=== PATIENT | female | born 1985 | race African-American/Black ===

== ENCOUNTER 2020-03-15 22:29 | Inpatient (IN) | payer OTHER, SELFPAY ==
[2020-03-15] MEDS ORDERED: Ondansetron ODT 4 MG TAB PO PRN (23:44)
[2020-03-15] MEDS ORDERED: Ondansetron PF 4 MG/2 ML Vial IVP PRN (23:44)
[2020-03-16 00:15] VITALS: BMI 35.1
--- NOTE | 2020-03-16 00:18 | CON ---
DATE OF CONSULTATION: 03/15/2020 REASON FOR CONSULTATION: Abdominal pain. HISTORY OF PRESENT ILLNESS: Ms. Ascencio is a 34-year-old female, whom I saw tonjasmin at [facility] ER prior to her transfer to the [facility]. Reportedly, she has been in her usual state of health until this afternoon when she developed sudden onset of back pain that radiates with a fine wrapping around the right side. She did have nausea, but without any vomiting. The pain was fairly intense, rated at 10/10 when she presented to the ER. Since then, the pain has been under control with pain medication. She denies having had any previous abdominal pain. There is no antecedent gastrointestinal history. She does have chronic anemia for years with hemoglobin in the 6+ range reportedly. There is no signs of bleeding such as melena, hematochezia, or rectal bleeding. PAST MEDICAL HISTORY: No medical illness. PAST SURGICAL HISTORY: x2. ALLERGIES: NONE. MEDICATIONS: At home, none. SOCIAL HISTORY: The patient is single, has two children. No tobacco and no alcohol consumption. FAMILY HISTORY: Negative for any known GI problem, liver disease, or GI malignancy. REVIEW OF SYSTEMS: Ten-point review of system was completely negative. PHYSICAL EXAMINATION: VITAL SIGNS: At [facility] ER, her temperature was 98.2, blood pressure 146/102, pulse of 97. GENERAL: She is alert and uncomfortable, but in no severe pain. HEENT: Shows anicteric sclerae. Oropharynx is clear and moist. CV: Shows normal S1 and S2. Regular rate and rhythm. CHEST: Shows a breath sound. ABDOMEN: Mildly protuberant, but soft, essentially nontender to palpation. No palpable mass or organomegaly. She has active bowel sounds. EXTREMITIES: Shows no edema. DIAGNOSTIC STUDIES: Abdominal ultrasound performed showed normal liver. Common bile duct measure 1.02 cm. Gallbladder distended without any gallstone. Pancreas with edematous change involving the head. LABORATORY DATA: WBCs 13.9, hemoglobin 6.2, and platelet count of 455. Electrolytes within normal range. Creatinine 0.70, bilirubin 0.8, AST of 201, ALT of 118, alkaline phosphatase 150, and lipase of 8823. ASSESSMENT: 1. Severe abdominal pain with laboratory showing elevation of liver enzymes, but normal bilirubin and lipase of over 8800s. Biliary pancreatitis is suspected, although cholelithiasis is not seen on her ultrasound; however, bile duct is elevated to 1 cm, raising choledocholithiasis is also a possibility. 2. Pancreatitis, likely biliary as the patient does not consume alcohol and is not on any medication. RECOMMENDATION: 1. IV fluid for aggressive hydration. 2. Pancreatic rest with complete n.p.o. for now. 3. We will repeat LFT tomorrow. If her liver enzymes are still elevated or if there is an increase in her bilirubin, then we will proceed with ERCP. However, if there is rather fast normalization of her liver profile and lipase, then we will obtain surgical evaluation for cholecystectomy with intraoperative cholangiogram. 4. We will check a serum triglyceride in a.m. 5. We will follow. Job ID: [id number]
[2020-03-16] MEDS: Lactated Ringer's 1,000 ML IV SCH ×3 (00:33→15:24)
--- NOTE | 2020-03-16 00:54 | PDOC.FPRHP ---
- History of Present Illness Chief Complaint: Abdominal pain History of Present Illness: Patient is a 34 year old female with a history of anemia who presents to the ED in [facility] with complaints of epigastric abdominal pain and chest pain since eating shrimp for lunch. The patient describes the pain as "just pain" rated max 10/10, current 5/10, no radiation. She says the pain worsens with big breaths and when laying flat. She describes the chest pain as tightness and says it resolved prior to arrival. She reports low back pain, nausea, and vomiting x 6 since onset of pain. No hx of similar symptoms in the past. ED Course: In the [place] ED, the patient received Morphine 8mg, Ketorolac 30mg, Zofran 4mg and Zosyn 3.375mg. Dr. Hood, GI, was consulted and recommended admission for possible ERCP in the am. Patient was transferred to [facility] due to lack of beds at the facility. - Allergies/Adverse Reactions Allergies Allergy/AdvReac Type Severity Reaction Status Date / Time No Known Drug Allergies Allergy Verified 03/16/20 00:20 - History PMHx: Anemia (reports hx of blood transfusions, baseline Hgb ~7, stopped iron due to constipation) PSHx: x 2 FHx: Non-contributory Social: Denies tobacco use, ETOH use and drug use. - Review of Systems General: denies: fever/chills, night sweats, fatigue Eyes: denies: eye pain, vision changes ENT: denies: nasal congestion, rhinorrhea Respiratory: denies: cough, shortness of breath Cardiovascular: denies: chest pain, palpitation, edema Gastrointestinal: reports: nausea, vomiting, abdominal pain. denies: diarrhea, constipation, GI bleeding Genitourinary: reports: other (denies vaginal itching, discharge and odor). denies: dysuria, polyuria Skin: denies: rashes, jaundice Musculoskeletal: denies: pain, stiffness Neurological: denies: numbness, weakness Psychological: denies: anxiety, depression - Vital signs BP: [158/105] HR: [78] RR: [16] Tmax: [98.0F] Pox: [99]% on [RA] Wt: [111kg] - Physical Exam Constitutional: NAD, awake, alert and oriented HEENT: normocephalic and atraumatic, conjunctiva clear, MMM Neck: FROM, trachea midline Chest: no-tender to palpation, no lesions Heart: RRR, normal S1/S2, no murmurs/rubs/gallops, no edema Lungs: CTAB, no respiratory distress, good air movement Abdomen: soft, bowel sounds present, no masses/distention -Abdomen: Epigastric tenderness Musculoskeletal: normal structure, ROM grossly normal Neurological: no focal deficit, normal sensation Skin: no rash/lesions, no jaundice Heme/Lymphatic: no unusual bruising or bleeding Psychiatric: normal mood and affect FMR H&P: A/P - Problem List (1) Anemia Current Visit: Yes Status: Chronic Code(s): D64.9 - ANEMIA, UNSPECIFIED (2) Pancreatitis Current Visit: Yes Status: Acute Code(s): K85.90 - ACUTE PANCREATITIS WITHOUT NECROSIS OR INFECTION, UNSP - Plan Gallstone Pancreatitis WBC 13.9. Lipase 8823. LFTs elevated. RUQ US showed CBD dilation 1.02cm, dilated GB, edematous changes of the pancreatic head. Dr. Hood, GI, consulted in ED. Received Ketorolac, Zosyn, Morphine, Zofran in the ED. -Complete NPO -Dr. Hood recs: repeat LFTs in am, if trend up will proceed with ERCP, if improve consider surgical eval -CBC, CMP, Lipid panel in am Microcytic anemia Hgb 6.2, MCV 60.7 -Cause unknown, chronic per patient, previously on iron supplementation -1 unit pRBC -Iron studies in the am Hypokalemia K 3.3 at CS -Monitor with am CMP -Supplement as needed Trichomoniasis Asymptomatic. UA + blood, nitrites, RBC, WBC, squamous epithelium and trichomonas. -Hx of trichomoniasis in the past -F/u urine culture -Start flagyl x 7 days for treatment prior to discharge PCP: None, City Call Code: No CPR DVT PPx: not indicated, Brendan score 2 Dispo: Admit to medicine inpatient FMR H&P: [facility] - Plan Date/Time: 03/16/20 Randell4 Tabby Reynoso, have evaluated this patient and agree with findings/plan as outlined by jewelry internship resident. Pertinent changes/additions are listed here. 34 yo F is transferred from [facility] for gallstone pancreatitis. She reports a 1 day history of back pain, R sided pain. Reports nausea, no vomiting. Given zosyn, ketoralax 30, morphine 8, 1L, zofran in ED with some improvement of pain. Dr. Hood saw her in ED. RUQ US: CBD dilated to 1.02cm, pancreatic head edematous, gallbladder distended, no cholelithiasis PE: Gen: NAD HEENT: Moist MM, no LAD Heart: RRR, no murmurs or extra sounds. Distal pulses 2+ Lungs: CTAB, no wheezing. No increased work of breathing Abd: soft, epigastric, RUQ TTP, BS+ Ext: no cyanosis or edema Skin: no rashes Psych: AOx3 Gallstone Pancreatitis, concern for choledocholithiasis - Lipase 8823, AST 201, ALT 118 with CBD dilation and WBC 13.9. No cholecystitis on imaging. - Dr. Hood consulted from ED, appreciate recommendations - Continue IVF, monitor strict I/Os - Given zosyn in ED, GI did not recommend continuation at this time. However, if white count uptrends, patient becomes febrile etc will need to restart for presumed acute cholangitis - NPO strict - Trend labs in am for further procedural plan Microcytic Anemia - Hgb 6.2 - Chronic per patient, previously recommended iron supplements. Will check iron studies. Considering MCV of 60 could also consider thalassemia workup, however could be done outpatient - Transfuse 1 unit prbc tonight Trichomonas - Seen on UA - Asymptomatic, recommend starting treatment with metronidazole x7days prior to discharge - UA with +nitrites, but negative LE, and had squamous cells as well. Ordered urine culture to be added to labs in PCP: none, city call Attending: Dispo: admit to medical floor, inpatient
[2020-03-16] MEDS: Acetaminophen 325 MG TAB PO PRN ×2 (04:46→15:24)
[2020-03-16 05:54] LABS: ALT (SGPT) 90 U/L (8-55); AST (SGOT) 75 U/L (5-34); Albumin 3.3 g/dL (3.5-5.0); Alkaline Phosphatase 132 U/L (40-110); Anion Gap 10 mmol/L (10-20); BUN (Urea Nitrogen) 6 mg/dL (7.0-18.7); Bilirubin, Total 0.8 mg/dL (0.2-1.2); Calc. Creatinine Clearance 217 mL/min (70-130); Calcium 8.5 mg/dL (7.8-10.44); Carbon Dioxide 24 mmol/L (22-29); Chloride 106 mmol/L (98-107); Cholesterol 102 mg/dl (< 200 Desired); Estimated GFR-MDRD Greater than 90; Globulin 3.4 g/dL (2.4-3.5); Glucose 97 mg/dL (70-105); HDL Cholesterol 52 mg/dL (>60 Neg Risk); LDL Cholesterol, Calculated 42 mg/dL; Potassium 3.4 mmol/L (3.5-5.1); Protein, Total 6.7 g/dL (6.0-8.3); Sodium 137 mmol/L (136-145); Triglycerides 41 mg/dL (Less than 150)
[2020-03-16 05:59] LABS: #Lymphocytes 1.5 thou/uL (1.20-3.40); #Monocytes 0.7 thou/uL (0.11-0.59); #Neutrophils 5.5 thou/uL (1.40-6.50); %Eosinophils 0.2 % (0.0-10.0); %Lymphocytes 19.1 % (21.0-51.0); %Monocytes 9.6 % (0.0-10.0); %Neutrophils 71.1 % (42.0-75.0); Hemoglobin 6.5 g/dL (12.0-16.0); Hypochromia MODERATE=16-30 cells (100X) (0-5/hpf); MDiff Complete? YES; Mean Corpuscular HGB CONC 28.2 g/dL (32.0-36.0); Mean Corpuscular Hemoglobin 16.8 pg (27.0-31.0); Mean Corpuscular Volume 59.4 fL (78.0-98.0); Microcytosis MODERATE=15-30 cells (100X) (0-5/hpf); Ovalocytes SLIGHT = 2-5 cells (100X) (0-1/hpf); Platelet Count 331 thou/uL (130-400); Platelet Morphology Comment Appears Adequate; RBC Distribution Width 21.5 % (11.5-14.5); Red Blood Cell (RBC) Count 3.86 mill/uL (4.20-5.40); Reflex for Review?? NO; Target Cells SLIGHT = 2-5 cells (100X) (0-1/hpf); White Blood Cell (WBC) Count 7.7 thou/uL (4.8-10.8)
[2020-03-16 07:16] LABS: Troponin I 0.021 ng/mL (< 0.028)
[2020-03-16] MEDS ORDERED: FLU VACC QS2020-21(6MOS UP)/PF 60 MCG/0.5 ML SYRINGE IM ONE (09:00)
--- NOTE | 2020-03-16 10:36 | PRG ---
DATE OF SERVICE: 03/16/2020 SUBJECTIVE: Ms. Ascencio still has ongoing epigastric abdominal pain, but it is better than it was last night mildly. She has no further nausea or vomiting today. Last bowel movement was this morning. OBJECTIVE: VITAL SIGNS: Temperature 98.5, pulse 78, and blood pressure 136/94. GENERAL: She is in no acute distress. Alert and oriented x3. HEENT: Oropharynx is clear without lesions. LUNGS: Clear to auscultation bilaterally. HEART: Regular rate and rhythm without murmur. ABDOMEN: Soft, tender in the epigastric region to light palpation. Bowel sounds are present. EXTREMITIES: No lower extremity edema. LABORATORY DATA: White blood cell count 7.7, hemoglobin 6.5, platelets 331, and MCV 59.4. Lipase is improved from 8000 down to 1200; bilirubin 0.8; AST 75, down from 201; ALT is 90, down from 118; alkaline phosphatase is 132, down from 150. IMPRESSION: 1. Gallstone pancreatitis. Alcohol history is negative. Triglycerides are normal. Sudden onset pain and rapid rise and fall of her lipase all are consistent with the gallstone, most likely now passed with normal bilirubin and dropping LFTs. ALT greater than 3 times normal for 34-year-old woman on presentation. This again is consistent with gallstone pancreatitis. 2. Microcytic anemia. She has had this anemia for years. She does have heavy menstrual periods. She could have hemoglobin disorder. I am not sure if this has been worked up in the past. RECOMMENDATIONS: 1. Consult General Surgery for cholecystectomy with intraoperative cholangiogram. 2. If the intraoperative cholangiogram is positive, we will follow with endoscopic retrograde cholangiopancreatography. 3. Check iron studies. Evaluation of iron deficiency anemia could be worked up further potentially as an outpatient. This is a chronic condition. However, she is requiring blood transfusion today. Job ID: [id number]
[2020-03-16 11:23] LABS: Iron 24 ug/dL (50-170); Iron Binding Capacity, Total 399 mcg/dL (265-497)
[2020-03-16 15:20] LABS: Hemoglobin 7.6 g/dL (12.0-16.0); Mean Corpuscular HGB CONC 28.7 g/dL (32.0-36.0); Mean Corpuscular Volume 62.5 fL (78.0-98.0); Mean Platelet Volume 5.4 fL (7.4-10.4); Platelet Count 350 thou/uL (130-400); Red Blood Cell (RBC) Count 4.22 mill/uL (4.20-5.40); White Blood Cell (WBC) Count 11.8 thou/uL (4.8-10.8)
[2020-03-16] MEDS ORDERED: Ketorolac Tromethamine 30 MG/ML VIAL IVP PRN (16:42)
[2020-03-16] MEDS ORDERED: Acetaminophen 500 MG TAB PO PRN (16:42)
[2020-03-16] MEDS ORDERED: traMADol HCl 50 MG TAB PO PRN ×2 (16:42)
[2020-03-16 17:01] LABS: Iron 62 ug/dL (50-170); Iron Binding Capacity, Total 391 mcg/dL (265-497); Transferrin, Serum 313 mg/dL (180-382)
[2020-03-16] MEDS ORDERED: Ketorolac Tromethamine 30 MG/ML VIAL IVP SCH (17:15)
--- NOTE | 2020-03-17 00:12 | CON ---
DATE OF CONSULTATION: SUBJECTIVE: Gillian Ascencio is a 34-year-old black female, 5 feet 10 inches, 244 pounds. The patient presented with onset of abdominal pain, found to have pancreatitis, admitted 03/16/2020, admitted by Family Practice, Dr. Jarvis Govea is seeing the patient. The patient's lipase has improved since admission. Her pain is improved, although not resolved. Bilirubin is normal. AST and ALT slightly elevated. Slightly elevated lipase, decreased from over She has chronic anemia, probably from menorrhagia. Hemoglobin 6.5 on admission, 7.6 today. White count 11.8. Ultrasound of abdomen obtained revealed dilated bile duct of 1 mm. No gallstones. It is felt that since the patient does not drink alcohol, most likely etiology is a passed gallstone. Plan is for laparoscopic video cholecystectomy cholangiogram. She understands risks and benefits and consents. ALLERGIES: NONE. SOCIAL HISTORY: Tobacco, none. Alcohol, none. MEDICATIONS: None routinely. PAST SURGICAL HISTORY AND MEDICAL HISTORY: Noncontributory. FAMILY HISTORY: Noncontributory. PHYSICAL EXAMINATION: VITAL SIGNS: Height 5 feet 10 inches, weight 244 pounds. Temperature 97.7, heart rate 89, blood pressure 132/84. HEAD, EARS, EYES, NOSE, AND THROAT: Unremarkable. Sclerae nonicteric. SKIN: Nonjaundiced. LUNGS: Clear to auscultation. CARDIAC: Regular rate and rhythm without murmur or gallop. ABDOMEN: Soft. Mild tenderness. EXTREMITIES: Unremarkable. ASSESSMENT AND PLAN: Biliary pancreatitis. We recommend laparoscopic video cholecystectomy. Risks and benefits of the operation discussed, questions answered. Job ID: [id number]
[2020-03-17 05:41] LABS: #Lymphocytes 1.8 thou/uL (1.20-3.40); #Monocytes 1.4 thou/uL (0.11-0.59); #Neutrophils 10.8 thou/uL (1.40-6.50); %Basophils 0.3 % (0.0-1.0); %Eosinophils 0.2 % (0.0-10.0); %Lymphocytes 12.5 % (21.0-51.0); %Neutrophils 76.9 % (42.0-75.0); Hemoglobin 7.5 g/dL (12.0-16.0); Mean Corpuscular HGB CONC 28.7 g/dL (32.0-36.0); Mean Corpuscular Volume 62.7 fL (78.0-98.0); Mean Platelet Volume 5.3 fL (7.4-10.4); Platelet Count 349 thou/uL (130-400); RBC Distribution Width 25.4 % (11.5-14.5); Red Blood Cell (RBC) Count 4.17 mill/uL (4.20-5.40); White Blood Cell (WBC) Count 14.1 thou/uL (4.8-10.8)
[2020-03-17 05:50] LABS: ALT (SGPT) 60 U/L (8-55); AST (SGOT) 31 U/L (5-34); Albumin 3.4 g/dL (3.5-5.0); Alkaline Phosphatase 120 U/L (40-110); Anion Gap 14 mmol/L (10-20); BUN (Urea Nitrogen) 5 mg/dL (7.0-18.7); Bilirubin, Total 1.4 mg/dL (0.2-1.2); Calc. Creatinine Clearance 201 mL/min (70-130); Carbon Dioxide 22 mmol/L (22-29); Chloride 104 mmol/L (98-107); Estimated GFR-MDRD Greater than 90; Globulin 3.8 g/dL (2.4-3.5); Glucose 92 mg/dL (70-105); Potassium 3.6 mmol/L (3.5-5.1); Protein, Total 7.2 g/dL (6.0-8.3); Sodium 136 mmol/L (136-145)
[2020-03-17] MEDS: Lactated Ringer's 1,000 ML IV SCH ×4 (06:16→17:25)
--- NOTE | 2020-03-17 06:34 | PDOC.FM ---
- Subjective Subjective: Masood(ravin Ascencio is doing about the same as yesterday. She is still complaining of abdominal pain which she states is decreased by the pain medication but when that wears off it has not improved. Her labs have continued to improve. She is extremely tender to palpation and has rebound tenderness on exam. She was allowed a clear liquid diet last night and was able to tolerate some jell-o and pudding. She is scheduled to go to surgery today with Dr. Wood. - Objective Vital Signs & Weight: Vital Signs (12 hours) Temp Pulse Resp BP Pulse Ox 03/17/20 04:52 98.0 F 91 18 142/87 H 97 03/16/20 23:37 98.2 F 99 18 134/89 99 03/16/20 20:40 98.4 F 89 18 126/86 99 03/16/20 20:20 99 Weight Weight 111 kg I&O: 03/15/20 03/16/20 03/17/20 06:59 06:59 06:59 Intake Total 900 3920 Balance 900 3920 Result Diagrams: 03/17/20 05:14 03/17/20 05:14 Phys Exam - Physical Examination Constitutional: NAD Laying comfortably in bed, alert and aware Neck: supple, full ROM Respiratory: no wheezing, no rales, clear to auscultation bilateral Abdominal pain with deep inspiration Cardiovascular: RRR, no significant murmur Gastrointestinal: soft, positive bowel sounds Extremely tender to palpation and rebound tenderness in upper abdomen Some distention present Neurological: non-focal, moves all 4 limbs Psychiatric: normal affect, A&O x 3 Skin: no rash Dx/Plan - Plan Plan: Gallstone Pancreatitis - Dr. Wood following, laparoscopic video cholecystectomy scheduled for today - Rebound tenderness today on exam - Complete NPO - LFTs have continued to improve Microcytic anemia - Chronic, Hb stable since transfusion - Iron studies confirm iron deficiency anemia - Per pt hx, likely 2/2 menorrhagia. Providing clinic card for f/u and trial of control - Continue to monitor and transfuse, if indicated Hypokalemia - Monitor with morning CMPs - Replete once no longer NPO Trichomoniasis - F/u urine culture - Start flagyl x 7 days for treatment once no longer NPO, prior to discharge PCP: None, City Call Code: Full DVT PPx: not indicated, Brendan score 2 IVF: LR 150mL/h Dispo: Admit to medicine inpatient, LOS and discharge will be based on general surgery recs.
[2020-03-17] MEDS ORDERED: Glycopyrrolate 0.2 MG/ML 5 ML SYRINGE ONE (10:10)
[2020-03-17] MEDS ORDERED: Dexamethasone 20 MG/5 ML VIAL ONE (10:10)
[2020-03-17] MEDS ORDERED: PROPOFOL 200 MG/20 ML VIAL ONE (10:10)
[2020-03-17] MEDS ORDERED: Rocuronium Bromide 10 MG/ML (10ML VIAL) ONE (10:10)
[2020-03-17] MEDS ORDERED: Ondansetron PF 4 MG/2 ML Vial ONE ×2 (10:10→15:18)
[2020-03-17] MEDS ORDERED: Lidocaine 1% PF 5 ML VIAL ONE (10:10)
[2020-03-17 11:01] LABS: SARS-CoV-2 MS2 Positive; SARS-CoV-2 N Gene Negative; SARS-CoV-2 S Gene Negative; SARS-CoV-2 by NAA Not Detected (NotDetected); SARS-CoV-2 orf1ab Negative
[2020-03-17] MEDS ORDERED: Levofloxacin 500 mg/D5W 100 ml Premix Bag ONE (12:51)
[2020-03-17] MEDS ORDERED: Bupivacaine HCl 0.5%/Epinephrine 1:200,000/PF 30 ml Vial ONE (13:26)
[2020-03-17] MEDS ORDERED: Iothalamate Meglumine 60% 50 ML VIAL FS ONE (13:26)
[2020-03-17] MEDS ORDERED: Fentanyl 100 MCG/2 ML VIAL ONE (13:47)
--- NOTE | 2020-03-17 16:15 | PRG ---
DATE OF SERVICE: Gillian Ascencio underwent laparoscopic cholecystectomy, cholangiograms today. Her gallbladder was edematous and inflamed. There was ascites from her pancreatitis. She is still having pain from her pancreatitis and that is improving today relative to yesterday. The patient should be observed overnight postoperatively today and probably could be discharged home over the weekend. Diet and activity as tolerated. No lifting restriction. Encourage ambulation. She should follow up in my office in 2 to 3 weeks. If her pain worsens, she should obtain a CAT scan. The patient should be able to be discharged home on Tylenol, ibuprofen, and Ultram for pain. I will see her as needed this hospitalization. Dr. Javier Demarco is covering, call him as necessary. The patient can be discharged home in a day or two pending her diet tolerance and activity. Job ID: [id number]
--- NOTE | 2020-03-17 16:51 | RAD ---
EXAM: Cholangiogram in surgery HISTORY: Common bile duct enlargement COMPARISON: Ultrasound 03/15/2020 FINDINGS: Limited intraoperative fluoroscopic views were taken during a cholangiogram in surgery. The common bile duct is normal in caliber without filling defect. No leakage from the common bile duct. Contrast passes into the duodenum. No abnormality of the intrahepatic bile ducts. IMPRESSION: Unremarkable cholangiogram
[2020-03-17] MEDS: Enoxaparin Sodium 40 MG/0.4 ML SYRINGE SC SCH (19:49)
--- NOTE | 2020-03-17 21:06 | OP ---
DATE OF PROCEDURE: 03/17/2020 PREOPERATIVE DIAGNOSES: Cholecystitis, suspect cholelithiasis, passed stone, pancreatitis. POSTOPERATIVE DIAGNOSES: Cholecystitis, suspect cholelithiasis, passed stone, pancreatitis, dilated bile duct. PROCEDURE PERFORMED: Laparoscopic video cholecystectomy, negative intraoperative cholangiograms except for dilated duct, prompt emptying into the duodenum without filling defects. ANESTHESIA: General, local 0.5% Marcaine with epinephrine 30 mL. DESCRIPTION OF PROCEDURE: The patient was taken to the operating room, where under general anesthesia, abdomen was prepared with ChloraPrep and draped in routine fashion. Local anesthetic infiltrated in skin and subcutaneous tissue about each port site. Infraumbilical incision made. Pneumoperitoneum to 15 mmHg was obtained with a Veress needle, replaced with a 5 port, video laparoscope inserted. Right subxiphoid incision made and 11 port placed, right subcostal incision made in midclavicular and anterior axillary line and 5 ports placed. Liver appeared to be normal. There was ascites fluid consistent with pancreatitis, perihepatic. Gallbladder appeared to be edematous, inflamed. Fundus grasped and retracted cephalad. Infundibulum grasped, dissected free. Critical view obtained. Cautery used for hemostasis. Cystic artery doubly clipped proximally. Cystic duct singly clipped on the gallbladder side, opening made in the cystic duct, cholangiocatheter inserted and cholangiogram was obtained using fluoroscopy. Anesthesia administered intravenous glucagon. Contrast flowed properly into the duodenum without filling defects in the dilated common hepatic, common bile, and intrahepatic ducts. Cholangiocatheter removed. Cystic duct stump doubly clipped, and cystic artery and duct divided, gallbladder dissected free from liver bed, obtaining good hemostasis prior to division of final peritoneal attachments. Gallbladder and contents removed, submitted to Pathology. Good hemostasis ensured with cautery. Irrigant and pneumoperitoneum evacuated. All instruments removed and all skin incisions were approximated with interrupted subdermal 4-0 Monocryl, and Torrey glue applied. Job ID: [id number]
[2020-03-18] MEDS ORDERED: Iron Sucrose Complex 200 MG in Sodium Chloride 0.9% 100 ML IVPB SCH (01:30)
[2020-03-18] MEDS ORDERED: Iron, Sodium Ferric Gluconate 250 MG in Sodium Chloride 0.9% 100 ML IVPB SCH (02:00)
[2020-03-18] MEDS: Lactated Ringer's 1,000 ML IV SCH ×2 (04:50→10:26)
[2020-03-18 06:06] LABS: #Lymphocytes 1.1 thou/uL (1.20-3.40); #Neutrophils 16.9 thou/uL (1.40-6.50); %Lymphocytes 5.8 % (21.0-51.0); %Monocytes 5.4 % (0.0-10.0); %Neutrophils 88.8 % (42.0-75.0); Anisocytosis MODERATE=16-30 cells (100X) (0-5/hpf); Hemoglobin 6.9 g/dL (12.0-16.0); Hypochromia MODERATE=16-30 cells (100X) (0-5/hpf); MDiff Complete? YES; Mean Corpuscular HGB CONC 27.9 g/dL (32.0-36.0); Mean Corpuscular Hemoglobin 17.7 pg (27.0-31.0); Mean Corpuscular Volume 63.4 fL (78.0-98.0); Mean Platelet Volume 5.6 fL (7.4-10.4); Microcytosis MODERATE=15-30 cells (100X) (0-5/hpf); Platelet Count 285 thou/uL (130-400); RBC Distribution Width 25.6 % (11.5-14.5); Red Blood Cell (RBC) Count 3.87 mill/uL (4.20-5.40)
[2020-03-18 06:09] LABS: ALT (SGPT) 42 U/L (8-55); AST (SGOT) 31 U/L (5-34); Albumin 3.2 g/dL (3.5-5.0); Alkaline Phosphatase 108 U/L (40-110); Anion Gap 13 mmol/L (10-20); BUN (Urea Nitrogen) 6 mg/dL (7.0-18.7); Bilirubin, Total 0.7 mg/dL (0.2-1.2); Calc. Creatinine Clearance 217 mL/min (70-130); Calcium 8.8 mg/dL (7.8-10.44); Carbon Dioxide 23 mmol/L (22-29); Chloride 104 mmol/L (98-107); Estimated GFR-MDRD Greater than 90; Globulin 3.7 g/dL (2.4-3.5); Glucose 101 mg/dL (70-105); Lipase 80 U/L (8-78); Potassium 3.7 mmol/L (3.5-5.1); Protein, Total 6.9 g/dL (6.0-8.3); Sodium 136 mmol/L (136-145)
--- NOTE | 2020-03-18 06:11 | PDOC.FM ---
- Subjective Subjective: Masood(ravin Ascencio is doing well this morning and denies pain currently. She says she is feeling much better, overall. She states she was able to tolerate her liquid diet last night and is eager to try solid foods. She is agreeable to starting OCPs in the outpt setting, upon discharge. Incisions have no erythema/edema/discharge and are closed. - Objective Vital Signs & Weight: Vital Signs (12 hours) Temp Pulse Resp BP Pulse Ox 03/18/20 04:31 98.3 F 76 18 130/87 98 03/18/20 00:00 97.7 F 78 18 126/86 98 03/17/20 20:00 98 03/17/20 19:50 97.9 F 81 18 139/88 98 Weight Weight 111 kg I&O: 03/16/20 03/17/20 03/18/20 06:59 06:59 06:59 Intake Total 900 3920 1900 Balance 900 3920 1900 Result Diagrams: 03/18/20 05:09 03/18/20 05:09 Phys Exam - Physical Examination Constitutional: NAD (Laying comfortably in bed, awake, alert) Neck: supple, full ROM Respiratory: no wheezing, no rales, clear to auscultation bilateral Cardiovascular: RRR, no significant murmur Gastrointestinal: soft, no distention, positive bowel sounds Lap scars on abdomen closed, no erythema/edema/discharge Musculoskeletal: no edema, pulses present Neurological: non-focal, moves all 4 limbs Psychiatric: normal affect, A&O x 3 Skin: no rash Dx/Plan - Plan Plan: Gallstone Pancreatitis - Cholecystectomy and cholangiogram with Dr. Wood yesterday. - Regular diet - Can be discharged once tolerating diet and pain Microcytic anemia - Chronic, Hb stable since transfusion - Iron studies confirm iron deficiency anemia - Per pt hx, likely 2/2 menorrhagia. Providing clinic card for f/u and trial of control Will d/c with OCPs - Continue to monitor and transfuse, if indicated Hb today 6.9, likely hemodilution Orthostatic vitals ordered Likely transfusion of 1u pRBCs today - Outpt Fe supplementation recommended Trichomoniasis - F/u urine culture - Start flagyl x 7 days Hypokalemia, resolved PCP: None, City Call Code: Full DVT PPx: not indicated, Brendan score 2 IVF: LR 150mL/h Dispo: Admit to medicine inpatient, LOS and discharge likely <24h
[2020-03-18] MEDS ORDERED: metroNIDAZOLE 500 MG TAB PO SCH (09:45)
--- NOTE | 2020-03-18 11:34 | PDOC.BPN ---
- Brief Progress Note Encounter Date: 03/18/20 Encounter Time: 11:32 Patient is postoperative day 1 from a laparoscopic cholecystectomy with intraoperative cholangiogram Patient states that she is doing very well this morning. She is not having any difficulty with her clear liquids. Her original pain is gone. She is ambulating around the room. She desires additional food. Patient has been afebrile with heart rates in the 80s General-smiling and happy Lungs-grossly clear to auscultation bilaterally Heart-regular regular Abdomen-soft, appropriately tender around incisions, incisions are clean dry and intact White blood cell count 19 Assessment-postoperative day 1 from laparoscopic cholecystectomy. Her LFTs are normal. Her elevated white blood cell count could be secondary to postoperative the marginalization. She is afebrile and otherwise feels asymptomatic. If she is doing well with a regular diet, I think she could be released with close follow-up in clinic as needed. Otherwise, follow-up with Dr. Wood in 2 to 3 weeks
[2020-03-18] MEDS: metroNIDAZOLE 500 MG TAB PO SCH (20:00)
[2020-03-18] MEDS: Enoxaparin Sodium 40 MG/0.4 ML SYRINGE SC SCH (20:00)
[2020-03-18 22:16] LABS: Hemoglobin 7.4 g/dL (12.0-16.0); Mean Corpuscular HGB CONC 30.6 g/dL (32.0-36.0); Mean Corpuscular Hemoglobin 19.9 pg (27.0-31.0); Mean Platelet Volume 5.9 fL (7.4-10.4); Platelet Count 257 thou/uL (130-400); RBC Distribution Width 27.1 % (11.5-14.5); White Blood Cell (WBC) Count 13.9 thou/uL (4.8-10.8)
--- NOTE | 2020-03-19 06:15 | PDOC.FM ---
- Subjective Subjective: Ms. Ascencio is doing well this morning. She tolerated her diet well all day yesterday. She has been up and out of bed. She has been passing gas and had a BM. She is not complaining of any pain and is minimally tender on palpation of her RUQ. Her incisions have no erythema/edema/discharge. She has only required one dose of Tramadol, no Tylenol/Ibuprofen/Toradol. She denies sxs of anemia: dizziness/lightheadedness/nausea/vomiting/SOB/palpitations. - Objective Vital Signs & Weight: Vital Signs (12 hours) Temp Pulse Resp BP BP Pulse Ox 03/18/20 23:33 98.3 F 70 16 133/87 98 03/18/20 20:00 98.0 F 73 18 139/88 100 Weight Weight 111 kg I&O: 03/17/20 03/18/20 03/19/20 06:59 06:59 06:59 Intake Total 3920 1900 2270 Balance 3920 1900 2270 Result Diagrams: 03/19/20 05:25 03/19/20 05:25 Phys Exam - Physical Examination Constitutional: NAD (sleeping comfortably, easily arousable) Neck: supple, full ROM Respiratory: no wheezing, no rales, clear to auscultation bilateral Cardiovascular: RRR, no significant murmur Gastrointestinal: soft, no distention, positive bowel sounds Minimal tenderness to RUQ Musculoskeletal: no edema Neurological: non-focal, moves all 4 limbs Psychiatric: normal affect, A&O x 3 Skin: no rash -: No erythema/edema/discharge of incisions Dx/Plan - Plan Plan: Gallstone Pancreatitis - Cholecystectomy and cholangiogram on 03/17 - Tolerating diet, positive BM, getting OOB and walking, tolerating pain - Discharge today Microcytic anemia - Iron studies confirm iron deficiency anemia - Outpt Fe supplementation recommended - Per pt hx, likely 2/2 menorrhagia. Providing clinic card for f/u and trial of control Will d/c with OCPs - Has been transfused 2u pRBCs during hospital stay - Orthostatic vitals nml Trichomoniasis - F/u urine culture - Start flagyl x 7 days Hypokalemia, resolved PCP: None, City Call Code: Full DVT PPx: not indicated, Brendan score 2 IVF: LR 150mL/h Dispo: Admit to medicine inpatient, discharge planned for today
[2020-03-19 06:36] LABS: ALT (SGPT) 31 U/L (8-55); AST (SGOT) 19 U/L (5-34); Albumin 3.1 g/dL (3.5-5.0); Alkaline Phosphatase 92 U/L (40-110); Anion Gap 9 mmol/L (10-20); BUN (Urea Nitrogen) 9 mg/dL (7.0-18.7); Bilirubin, Total 0.5 mg/dL (0.2-1.2); Calc. Creatinine Clearance 207 mL/min (70-130); Calcium 8.5 mg/dL (7.8-10.44); Carbon Dioxide 26 mmol/L (22-29); Chloride 106 mmol/L (98-107); Estimated GFR-MDRD Greater than 90; Globulin 3.3 g/dL (2.4-3.5); Glucose 90 mg/dL (70-105); Potassium 3.4 mmol/L (3.5-5.1); Protein, Total 6.4 g/dL (6.0-8.3); Sodium 138 mmol/L (136-145)
[2020-03-19 07:32] LABS: #Lymphocytes 2.1 thou/uL (1.20-3.40); #Monocytes 0.8 thou/uL (0.11-0.59); #Neutrophils 5.5 thou/uL (1.40-6.50); %Basophils 0.4 % (0.0-1.0); %Eosinophils 0.3 % (0.0-10.0); %Lymphocytes 24.5 % (21.0-51.0); %Monocytes 9.7 % (0.0-10.0); %Neutrophils 65.1 % (42.0-75.0); Hemoglobin 9.3 g/dL (12.0-16.0); Hypochromia MODERATE=16-30 cells (100X) (0-5/hpf); MDiff Complete? YES; Mean Corpuscular HGB CONC 30.3 g/dL (32.0-36.0); Mean Corpuscular Hemoglobin 20.1 pg (27.0-31.0); Mean Corpuscular Volume 66.2 fL (78.0-98.0); Mean Platelet Volume 5.8 fL (7.4-10.4); Platelet Count 212 thou/uL (130-400); Platelet Morphology Comment Appears Adequate; RBC Distribution Width 27.8 % (11.5-14.5); Red Blood Cell (RBC) Count 4.61 mill/uL (4.20-5.40); White Blood Cell (WBC) Count 8.5 thou/uL (4.8-10.8)
[2020-03-19 08:42] VITALS: BP 134/95; TEMP 98.2
[2020-03-19] MEDS: metroNIDAZOLE 500 MG TAB PO SCH (09:10)
--- NOTE | 2020-03-22 10:00 | DIS ---
DATE OF ADMISSION: 03/15/2020 DATE OF DISCHARGE: 03/19/2020 RESIDENT: Ceci Pleitez MD. ADMITTING/ATTENDING: Dr. Benjamin Harris. DISCHARGE ATTENDING: Dr. Mike Carpenter. CONSULTS: 1. Gastroenterology, Dr. Hood, then Dr. Govea (03/16). 2. General Surgery, Dr. Wood (03/17). PROCEDURES: Laparoscopic video cholecystectomy. PRIMARY DIAGNOSES: Biliary pancreatitis, acute cholecystitis, iron-deficiency anemia, hypokalemia, trichomoniasis. SECONDARY DIAGNOSIS: Abnormal uterine bleeding (menorrhagia). DISCHARGE MEDICATIONS: 1. Metronidazole 500 mg p.o. q.12 x6 days. 2. Tylenol 1000 mg p.o. q.6h p.r.n. 3. Sprintec 1 tablet p.o. daily. Discontinued medications, none. HISTORY OF PRESENT ILLNESS/HOSPITAL COURSE: This is a 34-year-old female, who initially presented to the [facility] ED after developing epigastric abdominal pain, chest pain, low back pain, nausea and vomiting after eating. The pain was rated at 10/10 without radiation and worsened with deep inspiration and lying flat. In the [facility] ED, she received morphine 8 mg, ketorolac 30 mg, Zofran 4 mg, Zosyn 3.[address] Hood, Gastroenterology, was consulted and recommended admission for possible ERCP. The patient was transferred to [facility] in [place] due to bed availability. Notable labs include a white count of 14; lipase 8823; elevated LFTs. Right upper quadrant ultrasound showing common bile duct dilation/dilated gallbladder/edematous changes of the pancreatic head. She was also found to have a hemoglobin of 6.2, consistent with her history of iron-deficiency anemia. She was transfused 1 unit of packed red blood cells after iron studies were drawn. She was also found to have a potassium of 3.3. She was also found to have a urinalysis positive for trichomonas, for which she has a history in the past. No antibiotic was started at that time given her lack of symptoms and being n.p.o. for surgery. Dr. Govea evaluated her on 03/16, with the suspicion of gallstone pancreatitis. Her alcohol history was negative, triglycerides were normal, bilirubin had come down to normal, and LFTs are dropping. This led him to believe a gallstone had passed. A consult to General Surgery for cholecystectomy with intraoperative cholangiogram. Dr. Wood agreed with the diagnosis of biliary pancreatitis and recommended laparoscopic video cholecystectomy. This surgery was performed on 03/17. Results of the cholangiogram were a dilated common bile duct with prompt emptying into the duodenum without filling defects. Cholecystectomy was performed and the gallbladder and its contents were submitted to Pathology. On 03/18, her hemoglobin was found to be 6.9 despite her prior transfusion. This was believed to be secondary to hemodilution during the surgery, but given the cause of her anemia being menorrhagia, she was transfused another unit of packed red blood cells. By 03/19, her hemoglobin had risen to 9.3. She had tolerated a regular diet the day before, had been able to get out of bed and walk around, had passed gas and had a bowel movement, and was tolerating her pain with Tylenol as the only pain medication. She has a personal and family history of severe menorrhagia and had been attempting to go on control to help manage the problem, but states she was told she could not go on control given her history of tubal ligation. She was provided a card to the [facility] and was discharged with a new prescription to Sprintec, which she was agreeable to. DISPOSITION: Stable. DISCHARGE INSTRUCTIONS: Location, home. Diet, regular. Activity, as tolerated. Followup: The patient is encouraged to establish care at [facility] and follow up in 7 to 10 days for continued management of her menorrhagia and for postoperative followup. Job ID: [id number]
== END 2020-03-19 11:26 | disposition home or self-care (01) | DRG 418 ==
LOC: SURG B 23:17
PROVIDERS: ADMIT Emergency Medicine; ATTEND Emergency Medicine
PROC: 30233N1 Transfusion of Nonautologous Red Blood Cells into Peripheral Vein, Percutaneous Approach (ICD-10-PCS; 2020-03-16)
PROC: 0FT44ZZ Resection of Gallbladder, Percutaneous Endoscopic Approach (ICD-10-PCS; principal; 2020-03-17)
PROC: BF121ZZ Fluoroscopy of Gallbladder using Low Osmolar Contrast (ICD-10-PCS; 2020-03-17)
DX: K85.10 Biliary acute pancreatitis without necrosis or infection (principal); R18.8 Other ascites; K81.0 Acute cholecystitis; A59.9 Trichomoniasis, unspecified; E87.6 Hypokalemia; D50.9 Iron deficiency anemia, unspecified; Z20.828 Contact with and (suspected) exposure to other viral communicable diseases; N92.0 Excessive and frequent menstruation with regular cycle
CPT/HCPCS: 36415; 36430; 47532; 80053; 80061; 82728; 83540; 83550; 83615; 83690; 84466; 84484; 85025; 85060; 86850; 86900; 86901; 87635; 88304; J1100; J1610; J1650; J1885; J1956; J2405; J2704; J2916; J3010; J3490; P9016; U0003